=== PATIENT | female | born 1965 | race Caucasian/White ===

== ENCOUNTER → 2017-01-23 | Outpatient (CLI) | payer OTHER ==
[~2017-01-23] VITALS: Ht 166.4 cm; Wt 99.8 kg
[2017-01-23 08:43] LABS: HEMOGLOBIN 6.8 gm/dl (12.3-15.3)
== END ==
LOC: OPSV 07:59
PROVIDERS: Internal Medicine
DX: C92.Z0 Other myeloid leukemia not having achieved remission (principal)
CPT/HCPCS: 36430; 36592; 85014; 85018; 85049; 86850; 86900; 86901; 86920; J7050; P9037; P9040; Q0163

== ENCOUNTER 2017-01-25 15:14 | Emergency (ER) | payer BC, OTHER ==
[2017-01-25 17:24] LABS: RED BLOOD COUNT 2.32 M/UL (4.00-5.10)
[2017-01-25 17:29] LABS: HEMOGLOBIN 6.8 gm/dl (12.3-15.3); WHITE BLOOD COUNT 0.3 K/UL (4.5-11.0)
== END 2017-01-25 22:05 | disposition short-term general hospital (02) ==
LOC: ER1 15:14
PROVIDERS: Physician Assistant
DX: D70.9 Neutropenia, unspecified (principal); R50.81 Fever presenting with conditions classified elsewhere; I10 Essential (primary) hypertension; D89.9 Disorder involving the immune mechanism, unspecified; C92.Z0 Other myeloid leukemia not having achieved remission; Z52.4 Kidney donor; Z87.891 Personal history of nicotine dependence
CPT/HCPCS: 36415; 71020; 80053; 81001; 83605; 83690; 85025; 85610; 85730; 87040; 87086; 96365; 99283; J0692; J7050

== ENCOUNTER → 2017-01-25 | Outpatient (CLI) | payer OTHER ==
[~2017-01-25] VITALS: Ht 166.4 cm; Wt 99.8 kg
[2017-01-25 08:50] LABS: HEMOGLOBIN 7.6 gm/dl (12.3-15.3)
== END ==
LOC: OPSV 08:16
PROVIDERS: Internal Medicine
DX: D61.9 Aplastic anemia, unspecified (principal)
CPT/HCPCS: 36430; 36592; 85014; 85018; 85049; 86900; 86901; J7050; P9037; Q0163